=== PATIENT | male | born 1980 | race Caucasian/White ===

== ENCOUNTER 2020-11-05 06:26 | Emergency (ER) | payer BC ==
[2020-11-05 06:32] VITALS: RESP 18
[2020-11-05] MEDS ORDERED: IBUPROFEN 600 MG TAB PO STA (06:40)
[2020-11-05] MEDS ORDERED: ACETAMINOPHEN TAB 500 MG TAB PO STA (06:40)
--- NOTE | 2020-11-05 07:06 | XR ---
EXAM: XR Chest, 2 Views CLINICAL HISTORY: ITS.REASON XR Reason: cough TECHNIQUE: Frontal and lateral views of the chest. COMPARISON: No relevant prior studies available. FINDINGS: Lungs: Mild lower lung opacities, possible atelectasis. No consolidation. Pleural space: No significant pleural effusion or pneumothorax. Heart: Unremarkable. Mediastinum: Unremarkable. Bones/joints: No acute fracture. IMPRESSION: Mild lower lung opacities, possible atelectasis. Developing infiltrate is not excluded in the appropriate clinical setting.
--- NOTE | 2020-11-05 07:10 | ED ---
URI HPI - General Chief Complaint: Upper Respiratory Infection Stated Complaint: Fever,Body Aches Time Seen by Provider: 11/05/20 06:40 Source: patient, RN notes reviewed Mode of arrival: ambulatory Limitations: no limitations - History of Present Illness Initial Comments: 40-year-old male presents emergency Department chief complaint of fever cough congestion body aches. Patient states that this started 2-3 days ago. Patient states that he developed a fever this morning did not take anything for. States initially started with a dry cough only gets a cold. He states that headache bodyaches chills no GI symptoms no significant past medical history. - Related Data Home Medications Medication Instructions Recorded Confirmed No Known Home Medications 11/05/20 11/05/20 Allergies Allergy/AdvReac Type Severity Reaction Status Date / Time Penicillins Allergy Rash/Hives Verified 11/05/20 07:33 Review of Systems ROS Statement: Those systems with pertinent positive or pertinent negative responses have been documented in the HPI. ROS Other: All systems not noted in ROS Statement are negative. Past Medical History Past Medical History: No Reported History History of Any Multi-Drug Resistant Organisms: None Reported Past Surgical History: No Surgical Hx Reported Past Psychological History: No Psychological Hx Reported Smoking Status: Never smoker Past Alcohol Use History: None Reported Past Drug Use History: None Reported General Exam Limitations: no limitations General appearance: alert, in no apparent distress Head exam: Present: atraumatic, normocephalic, normal inspection Eye exam: Present: normal appearance, PERRL, EOMI. Absent: scleral icterus, conjunctival injection, periorbital swelling ENT exam: Present: normal exam, normal oropharynx, mucous membranes moist Neck exam: Present: normal inspection, full ROM. Absent: tenderness, meningismus, lymphadenopathy Respiratory exam: Present: normal lung sounds bilaterally. Absent: respiratory distress, wheezes, rales, rhonchi, stridor Cardiovascular Exam: Present: normal rhythm, tachycardia, normal heart sounds. Absent: systolic murmur, diastolic murmur, rubs, gallop, clicks Neurological exam: Present: alert, oriented X3 Skin exam: Present: warm, dry, intact, normal color. Absent: rash Course Vital Signs 11/05/20 06:28 Temperature 100.8 F H Pulse Rate 107 H Respiratory 18 Rate Blood Pressure 113/66 O2 Sat by Pulse 94 L Oximetry Medical Decision Making - Medical Decision Making 40-year-old male presented for cough and cold-like symptoms. Patient is positive for covid. There is a possibly developing infiltrate otherwise no significant [place] on chest x-ray. Patient did present with fever which was treated. Patient is between 96 and 97 on room air we discharged him stable condition. - Lab Data Lab Results 11/05/20 Range/Units 06:49 Coronavirus (PCR) Detected A (Not Detectd) Disposition Clinical Impression: COVID-19 Disposition: HOME SELF-CARE Condition: Stable Instructions (If sedation given, give patient instructions): Coronavirus Disease 2019 (COVID-19) Additional Instructions: Please return to the Emergency Department if symptoms worsen or any other concerns. Is patient prescribed a controlled substance at d/c from ED?: No Referrals: None,Stated [Primary Care Provider] - 1-2 days Time of Disposition: 07:44
[2020-11-05 08:22] VITALS: BP 141/78; PULSE 91; TEMP 99.6
== END 2020-11-05 08:21 | disposition home or self-care (01) ==
LOC: EC 06:26
DX: U07.1 COVID-19 (principal); Z88.0 Allergy status to penicillin
CPT/HCPCS: 71046; 87635; 99284

== ENCOUNTER → 2020-11-16 | Outpatient (CLI) | payer BC | END | disposition home or self-care (01) | LOC: LABWHC1 16:20 | PROVIDERS: ATTEND Emergency Medicine | DX: U07.1 COVID-19 (principal) | CPT/HCPCS: U0003; C9803; U0005 ==

== ENCOUNTER 2020-11-20 01:56 | Emergency (ER) | payer BC ==
[2020-11-20 02:31] VITALS: BP 109/70; PULSE 107; RESP 20; TEMP 98.7
--- NOTE | 2020-11-20 02:50 | XR ---
EXAM: XR Chest, 2 Views CLINICAL HISTORY: ITS.REASON XR Reason: cough, sob TECHNIQUE: Frontal and lateral views of the chest. COMPARISON: Chest x-ray dated 11/05/2020 FINDINGS: Lungs: Scattered airspace opacities concerning for infectious process. Pleural space: Unremarkable. Heart: Unremarkable. Mediastinum: Unremarkable. Bones/joints: Unremarkable. IMPRESSION: Scattered airspace opacities concerning for infectious process.
--- NOTE | 2020-11-20 02:54 | ED ---
URI HPI - General Chief Complaint: Upper Respiratory Infection Stated Complaint: LT flank pain Time Seen by Provider: 11/20/20 02:53 Source: patient, RN notes reviewed Mode of arrival: ambulatory Limitations: no limitations - History of Present Illness Initial Comments: 40-year-old male presents emergency from chief complaint of left-sided rib lung pain. Patient states that he was diagnosed with colitis little over 2 weeks ago. Patient states that symptoms or improvement states she still having a cough which hurts. Patient denies any leg pain with swelling no history DVT or PE. States his fevers chills bodyaches are improving his GI symptoms are resolved. - Related Data Previous Rx's Medication Instructions Recorded Dexamethasone [Decadron] 6 mg PO DAILY #4 tablet 11/20/20 Ibuprofen [Motrin] 600 mg PO Q8HR PRN #20 tab 11/20/20 Allergies Allergy/AdvReac Type Severity Reaction Status Date / Time Penicillins Allergy Rash/Hives Verified 11/20/20 02:31 Review of Systems ROS Statement: Those systems with pertinent positive or pertinent negative responses have been documented in the HPI. ROS Other: All systems not noted in ROS Statement are negative. Past Medical History Past Medical History: No Reported History History of Any Multi-Drug Resistant Organisms: None Reported Past Surgical History: No Surgical Hx Reported Past Psychological History: No Psychological Hx Reported Smoking Status: Never smoker Past Alcohol Use History: None Reported Past Drug Use History: None Reported General Exam Limitations: no limitations General appearance: alert, in no apparent distress Head exam: Present: atraumatic, normocephalic, normal inspection Eye exam: Present: normal appearance, PERRL, EOMI. Absent: scleral icterus, conjunctival injection, periorbital swelling ENT exam: Present: normal exam, normal oropharynx, mucous membranes moist, TM's normal bilaterally Neck exam: Present: normal inspection, full ROM. Absent: tenderness, meningismus, lymphadenopathy Respiratory exam: Present: normal lung sounds bilaterally, chest wall tenderness. Absent: respiratory distress, wheezes, rales, rhonchi, stridor Cardiovascular Exam: Present: regular rate, normal rhythm, normal heart sounds. Absent: systolic murmur, diastolic murmur, rubs, gallop, clicks GI/Abdominal exam: Present: soft, normal bowel sounds. Absent: distended, tenderness, guarding, rebound, rigid Course Vital Signs 11/20/20 02:27 Temperature 98.7 F Pulse Rate 107 H Respiratory 20 Rate Blood Pressure 109/70 O2 Sat by Pulse 96 Oximetry Medical Decision Making - Medical Decision Making X-rays shows scattered infiltrates bilaterally, EKG is unremarkable. Patient's symptoms related to covid - EKG Data -: EKG Interpreted by Me EKG Comments: EKG performed at 3:01/tachycardia rate of 103 IN 150 QRS 86 QTC is QTC 348/455 Disposition Clinical Impression: COVID-19 Disposition: HOME SELF-CARE Condition: Stable Instructions (If sedation given, give patient instructions): Coronavirus Disease 2019 (COVID-19) Additional Instructions: Please return to the Emergency Department if symptoms worsen or any other concerns. Prescriptions: Dexamethasone [Decadron] 6 mg PO DAILY #4 tablet Ibuprofen [Motrin] 600 mg PO Q8HR PRN #20 tab PRN Reason: Pain Is patient prescribed a controlled substance at d/c from ED?: No Referrals: None,Stated [Primary Care Provider] - 1-2 days Time of Disposition: 03:13
== END 2020-11-20 03:28 | disposition home or self-care (01) ==
LOC: EC 01:56
DX: U07.1 COVID-19 (principal); Z88.0 Allergy status to penicillin
CPT/HCPCS: 71046; 93005; 99285

== ENCOUNTER → 2020-11-26 | Outpatient (CLI) | payer BC | END | disposition home or self-care (01) | LOC: LABWHC1 11:22 | PROVIDERS: ATTEND Emergency Medicine | DX: Z20.822 Contact with and (suspected) exposure to COVID-19 (principal) ==

== ENCOUNTER → 2020-11-29 | Outpatient (CLI) | payer BC | END | disposition home or self-care (01) | LOC: LABWHC1 13:38 | PROVIDERS: ATTEND Emergency Medicine | DX: Z20.822 Contact with and (suspected) exposure to COVID-19 (principal) | CPT/HCPCS: U0003; C9803 ==